=== PATIENT | female | born 1995 | race African-American/Black ===

== ENCOUNTER 2019-07-22 03:25 | Emergency (ER) | payer OTHER, MEDICAID, SELFPAY ==
[2019-07-22 03:38] VITALS: BP 130/85; PULSE 73; RESP 18; TEMP 36.8; O2SAT 100
--- NOTE | 2019-07-22 03:44 | ED.PREGNANCY ---
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 Patient is 15 weeks states she had spotting that started approximately 225 this morning. Patient went to the bathroom and wiped after arriving in the emergency department and states she thinks the bleeding may have stopped. Patient knows that she is O- and needs RhoGam if she has bleeding, hence why she presented to the emergency department. Patient states she was just relaxing and not doing anything strenuous when spotting occurred. She denies any abdominal pain or cramping. Patient last saw her CANCER RESEARCHER on July 04. Complaint: vaginal bleeding Onset (ago): hour(s) Pain Consistency: intermittent and now resolved Associated symptoms: denies other symptoms Vaginal discharge: none Vaginal bleeding: light (spotting) Patient : Yes Expected Date of Delivery: 01/08/20 Number of Weeks : 15 OB History - Current : no complications care: followed by OB and previous ultrasound confirms IUP Related Data Home Medications Medication Instructions Recorded Confirmed aspirin [Aspirin Low Dose] 81 mg PO DAILY 07/22/19 omega-3 fatty [id number] [[place] cap PO 07/22/19 Blue DHA] Allergies Allergy/AdvReac Type Severity Reaction Status Date / Time No Known Allergies Allergy Verified 05/22/19 17:41 Review of Systems Review of Systems: All systems reviewed & are unremarkable except as noted in HPI and below Gastrointestinal: Gastrointestinal: Denies abdominal pain Genitourinary: Genitourinary: Reports abnormal vaginal bleeding and Denies vaginal discharge PMFSH Past Medical History Medical History (Updated 07/22/19 @ 05:53 by Taylor Montenegro MD) No significant past medical history Surgical History Surgical History (Updated 07/22/19 @ 04:01 by Taylor Montenegro MD) No history of previous surgery Social History Social History (Updated 05/22/19 @ 19:05 by Renetta James PA-C) Smoking status: Never smoker Substance use: never Exam Const: General: cooperative, no acute distress and alert Nutritional Appearance: well nourished Orientation/consciousness: patient oriented x3 Limitations: no limitations HENMT: Mouth: Yes lip normal and Yes moist mucous membranes Resp: Effort & Inspection: normal respiratory effort Auscultation: clear to auscultation bilaterally Cardio: Rate: regular rate Rhythm: regular rhythm GI: GI Palp: Yes Soft to palpation and No Tenderness to palpation present (GI) Auscultation: normal bowel sounds : Speculum Exam - Vagina: abnormal vaginal discharge yellow (thick) and vaginal bleeding (small amount) Speculum Exam - Cervix: Cervical os closed Skin: General skin exam: normal color Neuro: General: patient oriented x3 Cognition (Neuro): normal cognition Speech: normal speech Extrem: General: normal to inspection, full ROM and no clubbing, cyanosis or edema Psych: Mental Status: mental status grossly normal Affect: normal affect Attitude: cooperative Course Course Emergency Course: Patient had notable vaginal discharge on examination. She denies having noticed any vaginal discharge at home. She denies any pelvic pain. She denies any itching. Discharge looks suspicious for yeast. Cultures obtained. Advised importance of CANCER RESEARCHER follow-up. Patient given dose of RhoGam. heart tones dopplered in 140s by nurse. Vital Signs Vital signs: Vital Signs Temperature 98.3 F 07/22/19 03:38 Pulse Rate 73 07/22/19 03:38 Respiratory Rate 18 07/22/19 03:38 Blood Pressure 130/85 07/22/19 03:38 Pulse Oximetry 100 07/22/19 03:38 Temperature 98.3 F
[2019-07-22 04:33] LABS: Add Urine Microscopic? YES; Appearance Urine Cloudy (Clear); Bacteria Urine Trace /hpf; Bilirubin Urine Negative (Negative); Blood Urine 1+ (Negative); Color Urine Yellow (Yellow); Glucose Urine UA Negative (Negative); Ketones Urine Negative (Negative); Leukocyte Esterase Ur 3+ LEU/UL (Negative); Mucus Urine Rare /lpf; Nitrate Urine Negative (Negative); Protein Urine 1+ mg/dL (Negative); RBC Urine 0-2 /hpf (0-2); Specific Grav Ur 1.025 (1.001-1.035); Squamous Epithelial Cell Urine Moderate /hpf (Few); Urobilinogen Urine Negative mg/dL (<2.0); WBC Urine 0-3 /hpf
[2019-07-22] MEDS: RHO(D) IMMUNE GLOBULIN 300 MCG SYRINGE IM (05:55)
[2019-07-22 06:01] VITALS: BP 102/59; PULSE 65; RESP 18; TEMP 36.4; O2SAT 100
== END 2019-07-22 06:17 | disposition home or self-care (01) ==
PROVIDERS: Emergency Provider Emergency Medicine; PCP Obstetrics & Gynecology
DX: O20.9 Hemorrhage in early pregnancy, unspecified (principal); Z3A.15 15 weeks gestation of pregnancy
CPT/HCPCS: 36415; 81001; 86850; 86900; 86901; 87070; 87491; 87591; 87808; 90384; 96372; 99284; J2790

== ENCOUNTER 2019-10-20 13:46 | Outpatient (RCR) | payer OTHER, MEDICAID, SELFPAY ==
[2019-10-20 15:43] LABS: Glucose 1 Hour PP 50gm Dose 81 mg/dL
[2019-10-20 15:48] LABS: Hematocrit 30.9 % (37.0-47.0)
[2019-10-20 16:25] LABS: HIV 1/2 Ab P24 Ag Result Negative (Negative)
[2019-10-23 07:41] LABS: Rapid Plasma Reagin Non-Reactive (NonReactive)
[2019-10-23] MEDS: RHO(D) IMMUNE GLOBULIN 300 MCG SYRINGE IM (14:39)
== END 2020-01-18 23:59 | disposition home or self-care (01) ==
LOC: ANHLAB 13:46
PROVIDERS: PCP Obstetrics & Gynecology; Visit Provider Obstetrics & Gynecology
DX: Z29.13 Encounter for prophylactic Rho(D) immune globulin (principal); Z11.4 Encounter for screening for human immunodeficiency virus [HIV]; O36.0990 Maternal care for other rhesus isoimmunization, unspecified trimester, not applicable or unspecified; Z3A.00 Weeks of gestation of pregnancy not specified
CPT/HCPCS: 36415; 82947; 85014; 85018; 85461; 86592; 86703; 90384; 96372; G0432; J2790

== ENCOUNTER 2019-12-11 21:00 | Inpatient (IN) | payer OTHER, MEDICAID, SELFPAY ==
[2019-12-11] VITALS (32 sets, daily range): BP systolic 120–143; BP diastolic 67–109; PULSE 76–110; TEMP 36.8; O2SAT 98–100; BMI 28.0
--- NOTE | 2019-12-11 21:58 | LDADM ---
This patient, Janneth Bravo, was admitted to Labor/Delivery/Recovery 107 on 12/11/19 at 21:00. Plans for labor, pain management and were discussed with patient. Patient/family oriented to hospital policies and general routines including ID bracelet, bed and alarms, visiting hours, pain management, procedures, bathroom and other care routines, personal items, smoking policy, room service/diet and guest tray routines, infant security routines, and visiting hours. Patient/Family are encouraged to report perceived risks to care and to ask questions if they do not understand what they are told or what they should do. See OBIX for further documentation.
[2019-12-11 22:02] LABS: Basophils Percent Auto 0.2 % (0.2-1.2); Eosinophils Absolute Auto 0.1 K/mm3 (0-0.3); Eosinophils Percent Auto 0.8 % (0-4.4); Hematocrit 32.5 % (37.0-47.0); Hemoglobin 10.6 g/dL (12.0-15.0); Immature Granulocyte Absolute 0.05 K/mm3 (0.00-0.031); Immature Granulocyte Percent A 0.8 % (0-0.5); Lymphocytes Absolute Auto 1.41 K/mm3 (0.9-3.2); Lymphocytes Percent Auto 21.4 % (18.3-44.2); Mean Corpuscular HGB Conc 32.6 g/dl (32-36); Mean Corpuscular Hemoglobin 30.3 pg (26-34); Mean Corpuscular Volume 92.9 fl (80-100); Mean Platelet Volume 9.6 fl (7.4-10.4); Monocytes Absolute Auto 0.7 K/mm3 (0.1-0.6); Monocytes Percent Auto 10.6 % (2.6-8.5); Neutrophils Absolute Auto 4.4 K/mm3 (1.3-6.7); Neutrophils Percent Auto 66.2 % (45.5-73.1); Platelet Count Result 214 k/mm3 (150-375); Red Cell Distribution Width 13.4 % (11.5-14.5); White Blood Count 6.6 K/mm3 (4.5-10.0)
[2019-12-11] MEDS: LACTATED RINGERS 1,000 ML 125 ML IV CONT (22:44)
[2019-12-11] MEDS: AMPICILLIN 2 GM/NS 100 ML 2 GM/100 ML BAG IVPB (22:44)
--- NOTE | 2019-12-11 23:22 | WPDANESEPP ---
Anes - Eval Pre Procedure Procedure: Labor epidural Date/Time: 12/11/19 23:22 Surgeon: juve Preop Diagnosis: pain during labor Pre Op Diagnosis: Contractions Patient Data Age: 24 Gender: F Height: 1.52 m Weight: 65 kg Last Vital Signs Pulse 90 12/11/19 23:01 BP 128/72 12/11/19 23:01 Pulse Ox 100 12/11/19 23:21 Allergies Allergy/AdvReac Type Severity Reaction Status Date / Time No Known Allergies Allergy Verified 12/09/19 14:49 Home Medications Medication Instructions Recorded Confirmed Type aspirin [Aspirin Low Dose] 81 mg PO DAILY 07/22/19 12/11/19 History omega-3 fatty [id number] [[place] 1 cap PO DAILY 07/22/19 12/11/19 History Blue DHA] Laboratory Tests 12/11/19 12/11/19 12/11/19 21:55 21:55 21:55 WBC 6.6 K/mm3 K/mm3 (4.5-10.0) RBC 3.50 M/mm3 L M/mm3 (4.2-5.4) Hgb 10.6 g/dL L g/dL (12.0-15.0) Hct 32.5 % L % (37.0-47.0) MCV 92.9 fl fl (80-100) MCH 30.3 pg pg (26-34) MCHC 32.6 g/dl g/dl (32-36) RDW 13.4 % % (11.5-14.5) Plt Count 214 k/mm3 k/mm3 (150-375) MPV 9.6 fl fl (7.4-10.4) Immature Gran % (Auto) 0.8 % H % (0-0.5) Neut % (Auto) 66.2 % % (45.5-73.1) Lymph % (Auto) 21.4 % % (18.3-44.2) [place] % (Auto) 10.6 % H % (2.6-8.5) Eos % (Auto) 0.8 % % (0-4.4) Baso % (Auto) 0.2 % % (0.2-1.2) Lymph # (Auto) 1.41 K/mm3 K/mm3 (0.9-3.2) [place] # (Auto) 0.7 K/mm3 H K/mm3 (0.1-0.6) Eos # (Auto) 0.1 K/mm3 K/mm3 (0-0.3) Baso # (Auto) 0.0 K/mm3 K/mm3 (0.0-0.1) Abs Immat Gran (auto) 0.05 K/mm3 H K/mm3 (0.00-0.031) Absolute Neuts (auto) 4.4 K/mm3 K/mm3 (1.3-6.7) Absolute Nucleated RBC 0.0 K/mm3 K/mm3 (0.0-0.012) Nucleated RBC % 0.0 % % (0.0-0.2) RPR Pending Blood Type Pending Antibody Screen Pending Patient hx anesthesia problems: none Family hx anesthesia problems: none [facility] Past Medical History Medical History (Updated 07/24/19 @ 00:00 by Hay Garay) No significant past medical history Surgical History Surgical History (Updated 07/22/19 @ 04:01 by Taylor Montenegro MD) No history of previous surgery Family History Family History (Updated 12/09/19 @ 14:50 by Stacey Duque RN) Mother Hypertension Social History Social History (Updated 05/22/19 @ 19:05 by Renetta James PA-C) Smoking status: Never smoker Substance use: never Spiritual care concerns: No Exam Day of Procedure 12/11/19 23:22
[2019-12-12] VITALS (21 sets, daily range): BP systolic 122–145; BP diastolic 69–97; PULSE 64–139; RESP 16–18; TEMP 36.7–37.5; O2SAT 83–100
[2019-12-12] MEDS: OXYTOCIN 30 UNITS/NS 500 ML 30 UNITS/500 ML BAG 999 UNITS IV CONT (01:01)
--- NOTE | 2019-12-12 01:10 | PM.OBPRVD ---
OB - Delivery Note Procedure Delivery date: 12/12/19 events: Labor < 37 Weeks and Premature Rupture of Membrane Delivery monitor: external FHT and external uterine Route of delivery: vacuum extraction Indication for instrumentation: nonreassuring FHR tracing (FHR down to 40's x 1 minute, back up to 90's x2 minutes, then 40's again x1 minute.Dr Nicole notified and is enroute. Vac applied @ 0054 and gentle traction applied with 2 pushes. Delivery of head easily. Vac removed and spontaneous delivery of the body. ) Laceration description: None Estimated blood loss (mL): 65 Anesthesia type: Epidural Complications: FHR down to 40's x 1 minute with return to 90's x 2 minutes, fhr then down to 40's again. Poor maternal pushing ability. Called Dr Nicole to informed with first decel in the 40's that we may need to apply vac and he is enroute. Peds also notified and coming over. Vac applied at 0054 due to 2nd deceleration. Delivery of head with 2 maternal pushes and gentle traction. Vac removed. Spontaneous delivery of infant. [place] Baby Date of : 12/12/19 Time of : 00:55 Weeks of gestation at delivery: 36 Weight (pounds): 5 Weight (ounces): 14 presentation: vertex position: Left Occiput Anterior Placenta delivery description: Spontaneous and Abnormal Configuration (Marginal insertion and short cord.) score one minute: 8 score five minutes: 9
--- NOTE | 2019-12-12 01:24 | WPDOBADMIT ---
Obstetrics - Admit Note Admission Note: 24 y/o @ 36 weeks here with spontaneous rupture of membranes. Treat for unknown GBS status. record reviewed. No pertinent additions to the history and/or any subsequent changes in the physical findings that are not consistent with the expected course of the were found. Additions to the history and/or subsequent changes in the physical findings follow. None.
--- NOTE | 2019-12-12 03:20 | OBPPTRN ---
Patient transferred to post room #284 via wheelchair with baby in bassinet. Support person present. Oriented to unit, room, information board, rooming in, admission packet and security measures. Patient verbalizes understanding.
--- NOTE | 2019-12-12 10:20 | PC.NURSE ---
Consult with pt., reported she wanted to breastfeed, mother states has been bottle feeding and she will continue with formula. Offered to assist mother with pumping mother declined offer.
[2019-12-12] MEDS: IBUPROFEN 600 MG TABLET PO (10:55)
[2019-12-12] MEDS: MULTIVIT/MIN/PREN/FOL AC/IRON TABLET 1 TAB PO (10:55)
[2019-12-12 11:04] LABS: Rapid Plasma Reagin Non-Reactive (NonReactive)
[2019-12-12] MEDS: ACETAMINOPHEN 325 MG TABLET 650 MG PO (20:00)
[2019-12-13] MEDS: ACETAMINOPHEN 325 MG TABLET 650 MG PO (04:46)
[2019-12-13] MEDS: IBUPROFEN 600 MG TABLET PO (04:46)
[2019-12-13 05:31] LABS: Hematocrit 30.9 % (37.0-47.0); Hemoglobin 10.1 g/dL (12.0-15.0)
--- NOTE | 2019-12-13 08:04 | WPDANLDPN2 ---
Anes-Prog Note L&D Date/Time: 12/13/19 08:04 Comfortable throughout: labor Neuraxial method: epidural Epidural/Spinal procedure site: clean & non-tender Neuro status: Neuro function grossly intact. Cardiovascular status: normal Respiratory status: normal Airway patency: baseline Mental status: baseline Post-Op hydration status: normal Vital Signs: Last Vital Signs Temp 98.0 F 12/12/19 19:52 Pulse 71 12/12/19 19:52 Resp 16 12/12/19 19:52 BP 126/92 H 12/12/19 19:52 Pulse Ox 100 12/12/19 08:10 Post-procedural complaints: none Patient feedback: Patient satisfied with anesthetic care.
[2019-12-13 08:15] VITALS: BP 128/93; PULSE 73; RESP 18; TEMP 37.1; O2SAT 98
[2019-12-13] MEDS: RHO(D) IMMUNE GLOBULIN 300 MCG SYRINGE IM (09:33)
--- NOTE | 2019-12-13 10:56 | PM.OBPNVD ---
OB - PN: Subj Subjective Date/time seen: 12/13/19 10:56 Patient comments: no complaints, pain well controlled, incisional pain, tolerating diet and flatus present OB - PN: Obj Data Labs CBC & Chem 7: 12/13/19 04:51 Labs: Laboratory Results - last 24 hr 12/11/19 12/13/19 12/13/19 21:55 04:51 04:51 Hgb 10.1 L Hct 30.9 L RPR Non-reactive Blood Type O Negative Antibody Screen TNP Screen Negative Baby's Blood Type O pos Baby's KATRINA Negative Doses of RhIg Required 1 OB - PN A/P Plan day: 1 Plan: routine care Comments: No problems, routine care Time Spent With Patient Time: Total time spent is greater than 50% in coordination of care (as documented) at patient's floor/unit and/or counseling patient: Exam Const: General: comfortable, no acute distress and alert Resp: Effort & Inspection: normal respiratory effort Auscultation: no crackles, no rales and no rhonchi Cardio: Rate: regular rate Heart sounds: no click, no murmurs and no rubs GI: Inspection: non-distended GI Palp: No Tenderness to palpation present (GI) Auscultation: normal bowel sounds Other: Incision - CDI Extrem: General: normal to inspection, no pedal edema and no calf tenderness
--- NOTE | 2019-12-13 14:20 | PC.NURSE ---
Patient instructed on viewing the discharge video Mother & Baby Care, The First Two Weeks online. Patient was given the opportunity and encouraged to ask questions. Patient verbalized understanding of information shared and has been given the mother/baby guide for home reference.
--- NOTE | 2020-01-05 11:11 | PM.OBDSVD ---
DS: Admitting Diagnosis Admitting Diagnosis Admitting Diagnosis: Contractions DS: Discharge Diagnosis Discharge Diagnosis (1) Vaginal delivery: Code(s): O80 - Encounter for full-term uncomplicated delivery Status: Acute OB - DS: Summary OB Procedures : None OB Procedures Intrapartum: Vacuum extraction OB Procedures: : None Time Spent with Patient Time attestation: Total time spent providing and/or coordinating discharge services: DS: Data Data Completed and Pending Completed studies during hospitalization: Pending at discharge 12/12/19 01:00 Surgical [PTH] Routine Discharge Plan Discharge Consulting providers: Cesar Sanchez ; Deidre Vazquez Discharging Clinician: Phoenix Nicole Patient Disposition: Home, Self-Care Activity: pelvic rest Diet: regular Discharge Instructions: Education: Mom and Baby Guide Given and Preeclampsia Handout to: Mother Mother received instruction on watching Mom/Baby Care video. Follow-Up: Call your delivering provider's office for an appointment to be seen in: 4 Weeks Mom and baby should come to the [facility] for the follow-up appointment. Appointment Date/Time: December 15, 2019 at 10:00 am What to expect at your follow-up visit: Physical Assessment Call [phone] if you are unable to keep your appointment time. BREAST CARE: * Wear a snug supportive bra. * For engorgement discomfort: Breast Feeding: * Apply warm moist washcloths * Express milk as needed to relieve engorgement * Wear loose clothing Bottle Feeding: * May apply ice packs * For sore nipples: * Identify correct latch-on * Apply warm moist washcloths before and after nursing * Air dry nipples after nursing * May apply Lansinoh cream to nipples EPISIOTOMY/PERINEAL CARE: * Until bleeding stops, use your ila bottle after urinating * Change your pad frequently throughout the day * You may take sitz baths several times a day (fill your bathtub with warm water and soak for 20 minutes.) Do NOT bathe in the water * No tub baths until seen by your physician - You may shower ACTIVITY: * Rest as much as possible. * Do not exercise or lift anything heavier than your baby (such as laundry or other children.) * Avoid stairs or driving as much as possible. * Do not put anything into the vagina. No douching, tampons, or sexual activity until seen by physician. NOTIFY PHYSICIAN IF YOU HAVE ANY QUESTIONS OR IF ANY OF THE FOLLOWING SYMPTOMS OCCUR: * If your perineum becomes red, swollen, or more painful than what you have experienced in the hospital. * If your vaginal bleeding becomes foul smelling. * If your vaginal bleeding becomes more heavy than a period or if your bleeding changes from pink to bright red. However, you may pass an occasional walnut-sized clot once or twice for the first week . * If you experience a sharp, shooting pain in you calves. * If you discover a hard, reddened area on your breast or if you experience flu-like symptoms. DIET: * Eat regular, well-balanced meals. * Drink plenty of fluids daily. If , drink to thirst. Stand Alone Forms: General Discharge Information Follow-up/Referrals: Casandra Casey MD [Physician] - 4 Weeks Discharge Medications: Continued [place] Blue DHA 312-250-18 mg Capsule 1 cap PO DAILY RF: 0 Discontinued aspirin [Aspirin Low Dose] 81 mg Tablet,Delayed Release (Dr/Ec) 81 mg PO DAILY RF: 0 Date of admission: 12/11/19 21:00 Primary Care Provider: PHYSICIAN,REFRIGERATING TECHNICIAN Admitting Provider: Casandra Casey Discharge Date/Time: 12/13/19 15:03 Attending physician on admission: Phoenix Nicole
== END 2019-12-13 15:03 | disposition home or self-care (01) | DRG 805 ==
LOC: ANHLDR 22:21 → ANHOB2 12-13 14:14 → ANHLDR 12-14 11:11 → ANHOB2 12-14 11:11
PROVIDERS: Advanced Practice Midwife; Admitting Provider Obstetrics & Gynecology; Visit Provider Obstetrics & Gynecology
DX: O42.913 Preterm premature rupture of membranes, unspecified as to length of time between rupture and onset of labor, third trimester (principal); O60.14X0 Preterm labor third trimester with preterm delivery third trimester, not applicable or unspecified; Z37.0 Single live birth; Z3A.36 36 weeks gestation of pregnancy; O36.8330 Maternal care for abnormalities of the fetal heart rate or rhythm, third trimester, not applicable or unspecified; O69.3XX0 Labor and delivery complicated by short cord, not applicable or unspecified; O69.89X0 Labor and delivery complicated by other cord complications, not applicable or unspecified
CPT/HCPCS: 36415; 85014; 85018; 85025; 85461; 86592; 86850; 86880; 86900; 86901; 86902; 88307; 90384; A9270; J0290; J2590; J2790; J7120

== ENCOUNTER 2019-12-13 14:45 | Outpatient (RCR) | payer OTHER, MEDICAID, SELFPAY ==
--- NOTE | 2019-11-14 14:56 | PTOPEVAL ---
PHYSICAL THERAPY EVALUATION AND PLAN OF CARE Thank you for referring Janneth Bravo to [facility]. I recommend Janneth participate in physical therapy 1x/week for 4-6 weeks. We will work toward a home exercise program, decrease trigger points, and discuss whether or not an SIJ belt may be helpful. Please review, sign, date and return this plan of care MELLY. I agree with and certify that the following plan of care is medically necessary. Referring Physician Date Attending Provider: Casandra Casey MD Evaluation Diagnosis right leg pain Onset 09/2019 Subjective Information pain in right leg since end of Query Text:As Reported By Patient/ September. She will sometimes call Family off work or have to sit at work. she works for [employer] in [place]. She 32 weeks . She reports that the pain starts in the hip and goes down the leg. the pain is intermittent. she will sometimes have to wait for the pain to go away or she can lay down and she feels better. Pain Assessment Timing of Pain Assessment Timing of Pain Assessment Assessment Pain Scale Pain Scale Used Numeric (1 - 10) Self Report Pain Assessment Right Leg(s) Reported Pain Level 2 Pain Description Sharp,Shooting Pain Frequency Acute,Intermittent Lowest Pain Intensity 0 Greatest Pain Intensity 8 Pain Relief Interventions Used By Lying Supine Patient Pain Score Pain Score 2: Self Report Cervical and Lumbar ROM Lumbar ROM Lumbar Flexion (0-90) 35 Query Text:Active in Degrees Lumbar Extension (0-40) 25 Query Text:Active in Degrees Lumbar Comments patient is 32 weeks : baby limited lumbar ROM flexion: left lateral lean Lower Extremity Range of Motion Hip Range of Motion Right Hip Flexion Range of Motion - Active 130 Hip Extension Range of Motion - Active 15 Hip Abduction Range of Motion - Passive 40 Hip Medial Rotation - Passive 5 Hip Lateral Rotation - Passive 25 Lower Extremity Muscle Strength Testing Hip Strength Right Hip Flexion Strength 4+ Good + Hip Abduction Strength 4 Good Knee Strength Right Knee Flexion Strength 5 Normal Knee Extension Strength 5 Normal Muscle Length Testing Muscle Length Testing Piriformis w/Hip Flexion >90 Degrees (L) Moderate Tightness,(R) Severe Tightness Posture Posture Standing Position
--- NOTE | 2019-12-06 15:21 | PCPTNOTE ---
Patient did not show up for scheduled appointment this date.
--- NOTE | 2019-12-13 15:28 | PCPTNOTE ---
Patient did not show up for scheduled appointment this date.
--- NOTE | 2019-12-13 15:28 | PCPTNOTE ---
PHYSICAL THERAPY DISCHARGE NOTE Attending Provider: Casandra Casey MD Patient:Janneth Bravo Date of :1995 Cata participated in physical therapy evaluation and 2 treatment visits with moderate relief of symptoms to right hip and low back. She did not show fo rher appointments on 12/06/2019 and 12/13/2019. In looking at her medical record, she delivered her child on 12/12/2019; therefore she will be discharged PT at this time. Thank you for referring this patient to [facility]. Please review, sign, date and return this discharge summary MELLY. I have been updated about the patient's current status and I agree with discharge from the above service at this time. Referring Physician Date
== END 2019-12-14 12:50 | disposition home or self-care (01) ==
LOC: ANHPT 14:45
PROVIDERS: PCP Obstetrics & Gynecology; Visit Provider Obstetrics & Gynecology
DX: M79.604 Pain in right leg (principal)
CPT/HCPCS: 97110; 97140; 97161

== ENCOUNTER 2020-01-13 12:22 | Outpatient (CLI) | payer OTHER, MEDICAID, SELFPAY ==
[2020-01-13] VITALS (11 sets, daily range): BP systolic 118–158; BP diastolic 81–114; PULSE 63–80
[2020-01-13] MEDS: LABETALOL HCL 100 MG TABLET 200 MG PO (13:35)
[2020-01-13 13:48] LABS: Basophils Percent Auto 0.5 % (0.2-1.2); Eosinophils Absolute Auto 0.1 K/mm3 (0-0.3); Hematocrit 41.1 % (37.0-47.0); Hemoglobin 13.4 g/dL (12.0-15.0); Immature Granulocyte Absolute 0.02 K/mm3 (0.00-0.031); Immature Granulocyte Percent A 0.5 % (0-0.5); Lymphocytes Absolute Auto 2.03 K/mm3 (0.9-3.2); Lymphocytes Percent Auto 47.3 % (18.3-44.2); Mean Corpuscular HGB Conc 32.6 g/dl (32-36); Mean Corpuscular Hemoglobin 29.5 pg (26-34); Mean Corpuscular Volume 90.3 fl (80-100); Mean Platelet Volume 10.8 fl (7.4-10.4); Monocytes Absolute Auto 0.4 K/mm3 (0.1-0.6); Monocytes Percent Auto 8.9 % (2.6-8.5); Neutrophils Absolute Auto 1.7 K/mm3 (1.3-6.7); Neutrophils Percent Auto 39.8 % (45.5-73.1); Platelet Count Result 200 k/mm3 (150-375); Red Blood Count 4.55 M/mm3 (4.2-5.4); Red Cell Distribution Width 12.8 % (11.5-14.5); White Blood Count 4.3 K/mm3 (4.5-10.0)
[2020-01-13 13:50] LABS: Add Urine Microscopic? NO; Appearance Urine Clear (Clear); Bilirubin Urine Negative (Negative); Blood Urine Negative (Negative); Color Urine Colorless (Yellow); Glucose Urine UA Negative (Negative); Ketones Urine Negative (Negative); Leukocyte Esterase Ur Negative LEU/UL (NEGATIVE); Nitrate Urine Negative (Negative); Protein Urine Negative (Negative); Specific Grav Ur 1.011 (1.001-1.035); Urobilinogen Urine Negative mg/dL (<2.0)
[2020-01-13 14:00] LABS: Potassium 4.5 mmol/L (3.4-5.0)
[2020-01-13 14:05] LABS: Alanine Aminotransferase 9 U/L (4-35); Albumin Level 4.5 g/dL (3.5-5.1); Alkaline Phosphatase 126 U/L (38-126); Anion Gap 7 mmol/L (8-16); Aspartate Amino Transferase 19 U/L (14-36); Bilirubin,Total 0.4 mg/dL (0.2-1.3); Blood Urea Nitrogen 17 mg/dL (7-17); Calcium 9.1 mg/dL (8.4-10.2); Carbon Dioxide 25 mmol/L (22-30); Chloride 103 mmol/L (98-107); Estimated Glomerular Filt Rate > 60; Glucose 79 mg/dL (65-105); Sodium 135 mmol/L (137-145); Uric Acid 6.1 mg/dL (2.5-7.5)
[2020-01-13 14:42] LABS: Total Protein Urine Random 9 mg/dL
[2020-01-13 14:50] LABS: Creatinine Urine 43.3 mg/dL
== END 2020-01-13 15:12 | disposition home or self-care (01) ==
LOC: ANHOBOP 12:31 → ANHOBPP 12:32
PROVIDERS: Visit Provider Obstetrics & Gynecology
DX: O16.5 Unspecified maternal hypertension, complicating the puerperium (principal)
CPT/HCPCS: 36415; 80053; 81003; 82570; 84156; 84550; 85025; 87086; 99199; A9270

== ENCOUNTER 2022-05-13 22:46 | Emergency (ER) | payer BC, MEDICAID, SELFPAY ==
[2022-05-13 22:52] VITALS: BP 143/95; PULSE 88; RESP 20; TEMP 36.9; O2SAT 100
[2022-05-14 00:15] LABS: Influenza A QL RT-PCR Positive (Negative); Influenza B QL RT-PCR Negative (Negative); RSV RNA, RT-PCR Negative (Negative); SARS-CoV-2 RNA PCR Negative
--- NOTE | 2022-05-14 00:28 | ED.GENADULT ---
HPI - General Adult General Chief complaint: Upper Respiratory Infection Stated complaint: R ear pain, cough Time Seen by Provider: 05/14/22 00:04 History of Present Illness HPI narrative: Ms. Bravo is a 27-year-old female who presented emergency room with complaints of right ear pain and sore throat. Patient states that she has had increasing right ear pain over the last few days. Patient denies any fevers chills. Patient states that she has had sick contact with her children. Patient denies any shortness of breath or dyspnea on exertion. Patient states she does have an occasional cough that is productive of clear sputum. Patient denies taking any [id number] medication to help with her symptoms. Patient denies any chest pain, lightheadedness, dizziness, syncopal, or near syncopal episodes. Related Data Allergies Allergy/AdvReac Type Severity Reaction Status Date / Time No Known Allergies Allergy Verified 05/14/22 00:20 Review of Systems Review of Systems: A 12 point review of systems was completed patient all pertinent positive and negative per HPI the remainder are unremarkable. [facility], [facility] Past Medical History Medical History (Updated 05/14/22 @ 00:53 by Brenda Gibson APRN) No significant past medical history Surgical History Surgical History (System 08/27/20 @ 15:57 by Saúl Rodriguez) No history of previous surgery Family History Family History (System 08/27/20 @ 15:57 by Saúl Rodriguez) Mother Hypertension Social History Social History (System 08/27/20 @ 15:57 by Saúl Rodriguez) Smoking status: Never smoker Substance use: never Spiritual care concerns: No Exam Narrative: Constitutional: Patient is well-nourished in no acute distress. Patient is alert and oriented x3 HEENT: Moist mucous membranes. No scleral icterus. No lymphadenopathy. There is no erythema noted oropharynx. tonsils are not noted. Right TM is retracted with no notable landmarks at this time. TM to right ear does show erythema. Left TM is a pearly haley with all infarcts noted and a good light reflex. Neck: No carotid bruits noted no JVD noted Lungs: Lung sounds are clear to auscultation bilaterally. No accessory muscle use. No rhonchi, rales, or wheezes noted. Cardiovascular: Apical pulse is regular rate and rhythm. S1-S2 noted, no S3 or S4 noted. No gallops, murmurs, or rubs noted. Abdomen: Soft, round, and nontender. No palpable masses. Extremities: No edema. Nontender. Skin: No rashes or lesions. Warm and dry. Skin is intact. Neurological: No focal neurological deficits. Cranial nerves II-XII grossly intact. Psychiatric: Cooperative, appropriate mood, and affect Course Vital Signs Vital signs: Vital Signs Temperature 36.9 C 05/13/22 22:52 Pulse Rate 88 05/13/22 22:52 Respiratory Rate 05/13/22 22:52 Blood Pressure 143/95 H 05/13/22 22:52 Pulse Oximetry 100 05/13/22 22:52 Oxygen Delivery Room Air 05/13/22 22:52 Temperature 36.9 C 05/13/22 22:52 Pulse Rate 88 05/13/22 22:52 Respiratory Rate 20 05/13/22 22:52 Blood Pressure 143/95 H 05/13/22 22:52 Pulse Oximetry 100 05/14/22 00:37 Oxygen Delivery Room Air 05/14/22 00:37 Medical Decision Making Differential Diagnosis Differential Diagnosis: Otitis media, otitis externa, Streptococcus pharyngitis, URI, sinusitis Vital Signs Vital Signs: Vital Signs Temperature 36.9 C 05/13/22 22:52 Pulse Rate 88 05/13/22 22:52 Respiratory Rate 20 05/13/22 22:52 Blood Pressure 143/95 H 05/13/22 22:52 Pulse Oximetry 100 05/13/22 22:52 Oxygen Delivery Room Air 05/13/22 22:52 Temperature 36.9 C 05/13/22 22:52 Pulse Rate 88 05/13/22 22:52 Respiratory Rate 05/13/22 22:52 Blood Pressure 143/95 H 05/13/22 22:52 Pulse Oximetry 100 05/14/22 00:37 Oxygen Delivery Room Air 05/14/22 00:37 Lab Data Labs: Lab Results 05/13/22 Range/Units 23:36 Influenza A (
[2022-05-14 00:37] VITALS: O2SAT 100
== END 2022-05-14 01:00 | disposition home or self-care (01) ==
PROVIDERS: Emergency Medicine; Emergency Provider Nurse Practitioner Adult Health
DX: J10.1 Influenza due to other identified influenza virus with other respiratory manifestations (principal); H66.91 Otitis media, unspecified, right ear; Z20.822 Contact with and (suspected) exposure to COVID-19
CPT/HCPCS: 87081; 87637; 99283

== ENCOUNTER 2022-07-11 19:34 | Emergency (ER) | payer BC, MEDICAID, SELFPAY ==
[2022-07-11 19:54] VITALS: BP 147/97; PULSE 65; RESP 16; TEMP 36.3; O2SAT 100
--- NOTE | 2022-07-11 20:28 | PC.NURSE ---
Patient approached the intake desk and informed parts data writer that she was going to leave and not be seen at this time. Patient alert and ambulatory out of ED doors.
== END 2022-07-11 20:28 | disposition left against medical advice (07) ==
LOC: ANHED 20:36
DX: Z53.21 Procedure and treatment not carried out due to patient leaving prior to being seen by health care provider (principal)
CPT/HCPCS: 99199

== ENCOUNTER 2022-07-12 18:14 | Emergency (ER) | payer BC, MEDICAID, SELFPAY ==
[2022-07-12 18:54] VITALS: BP 139/99; PULSE 76; RESP 14; TEMP 36.7; O2SAT 100
[2022-07-12 19:16] LABS: Appearance Urine Clear (Clear); Bilirubin Urine Negative (Negative); Blood Urine 2+ (Negative); Color Urine Yellow (Yellow); Glucose Urine UA Negative (Negative); Ketones Urine Negative (Negative); Leukocyte Esterase Ur Negative LEU/UL (Negative); Nitrate Urine Negative (Negative); Protein Urine Negative (Negative); Specific Grav Ur >= 1.030 (1.001-1.035); Urobilinogen Urine 0.2 mg/dL (<2.0); pH Urine 5.5 (5.0-9.0)
[2022-07-12 19:19] LABS: RBC Urine 0-2 /hpf (0-2); Squamous Epithelial Cell Urine Occasional /hpf (Few); WBC Urine 0-3 /hpf
[2022-07-12 19:23] LABS: Add Urine Microscopic? YES
[2022-07-12 23:40] VITALS: BP 150/96; PULSE 71; RESP 14; O2SAT 100
[2022-07-12 23:54] LABS: Basophils Percent Auto 0.5 % (0.2-1.2); Eosinophils Absolute Auto 0.1 K/mm3 (0-0.3); Eosinophils Percent Auto 1.8 % (0-4.4); Hematocrit 39.8 % (37.0-47.0); Hemoglobin 12.7 g/dL (12.0-15.0); Immature Granulocyte Absolute 0.01 K/mm3 (0.00-0.031); Immature Granulocyte Percent A 0.2 % (0-0.5); Lymphocytes Percent Auto 42.3 % (18.3-44.2); Mean Corpuscular HGB Conc 31.9 g/dl (32-36); Mean Corpuscular Hemoglobin 29.9 pg (26-34); Mean Corpuscular Volume 93.6 fl (80-100); Mean Platelet Volume 9.9 fl (7.4-10.4); Monocytes Absolute Auto 0.6 K/mm3 (0.1-0.6); Monocytes Percent Auto 10.3 % (2.6-8.5); Neutrophils Absolute Auto 2.8 K/mm3 (1.3-6.7); Neutrophils Percent Auto 44.9 % (45.5-73.1); Platelet Count Result 266 k/mm3 (150-375); Red Blood Count 4.25 M/mm3 (4.2-5.4); Red Cell Distribution Width 13.2 % (11.5-14.5); White Blood Count 6.1 K/mm3 (4.5-10.0)
[2022-07-13 00:08] LABS: Alanine Aminotransferase 14 U/L (6-35); Albumin Level 4.3 g/dL (3.5-5.1); Alkaline Phosphatase 85 U/L (38-126); Anion Gap 5 mmol/L (8-16); Aspartate Amino Transferase 18 U/L (14-36); Bilirubin,Total 0.5 mg/dL (0.2-1.3); Blood Urea Nitrogen 12 mg/dL (7-17); Calcium 8.9 mg/dL (8.4-10.2); Carbon Dioxide 27 mmol/L (22-30); Chloride 103 mmol/L (98-107); Estimated CRCL calculation 97 ml/min; Estimated Glomerular Filt Rate > 60; Glucose 93 mg/dL (65-110); Potassium 3.5 mmol/L (3.4-5.0); Sodium 135 mmol/L (137-145)
--- NOTE | 2022-07-13 00:08 | ED.FEMALEGU ---
HPI - Female Genitourinary General Chief complaint: Vaginal Bleeding Stated complaint: vag bleeding Time Seen by Provider: 07/12/22 23:01 Source: patient Mode of arrival: ambulatory Limitations: no limitations History of Present Illness HPI Narrative: Patient is a 27 y/o female who presents to the ED with c/o vaginal spotting. Patient reports she had her normal menstrual cycle on 07/02 - 07/05. She states this cycle seemed normal for her in amount, timing, and length. She developed vaginal spotting a few days later. She states the bleeding was very light, did not require a pad or tampon. Has since persisted, which prompted her presentation. She denies any abdominal pain, nausea, vomiting, dizziness, lightheadedness, urinary symptoms, fevers. Related Data Allergies Allergy/AdvReac Type Severity Reaction Status Date / Time No Known Allergies Allergy Verified 07/11/22 19:36 Review of Systems Review of Systems: CONSTITUTIONAL: Denies fever, chills, or sweats. CARDIOVASCULAR: Denies chest pain. RESPIRATORY: Denies dyspnea. GASTROINTESTINAL: Denies abdominal pain, nausea, vomiting. GENITOURINARY: See HPI. SKIN: Denies rash or itching. MUSCULOSKELETAL: Denies back pain, joint pain, or myalgia. NEUROLOGIC: See HPI. All systems reviewed & are unremarkable except as noted in HPI and below PMFSH Past Medical History Medical History No significant past medical history Surgical History Surgical History No history of previous surgery Family History Family History Mother Hypertension Social History Social History Smoking status: Never smoker Substance use: never Spiritual care concerns: No Exam Narrative: GENERAL: Well appearing, well-nourished, non-toxic, in no acute distress. HEAD: Normocephalic, atraumatic. NECK: Supple. No adenopathy, no masses. RESPIRATORY: Airway patent, respirations nonlabored. Clear to auscultation bilaterally, no rales, rhonchi, wheezing. CARDIOVASCULAR: Regular rate and rhythm without murmurs, rubs, or gallops. Peripheral pulses 2+ and equal bilaterally. ABDOMINAL: Soft, no tenderness throughout abdomen, nondistended, no hepatosplenomegaly. Normoactive BS. PELVIC: Normal external genitalia. Normal-appearing cervix, closed os. Minimal amount of light pink/red vaginal bleeding in vault, no signs of hemorrhage or pooling of blood. MUSCULOSKELETAL: Moves all extremities. Strength/ROM intact without gross deformities. SKIN: Warm, dry, normal color. No rashes. NEURO: A&O X3. Speech clear. Cranial nerves II-XII grossly intact. Steady gait. No ataxic movements. PSYCHIATRIC: Appropriate mood and affect. Normal interaction. Course Vital Signs Vital signs: Vital Signs Temperature 98.0 F 07/12/22 18:54 Pulse Rate 76 07/12/22 18:54 Respiratory Rate 14 07/12/22 18:54 Blood Pressure 139/99 H 07/12/22 18:54 Pulse Oximetry 100 07/12/22 18:54 Oxygen Delivery Room Air 07/12/22 18:54 Temperature 98.0 F 07/12/22 18:54 Pulse Rate 71 07/12/22 23:40 Respiratory Rate 14 07/12/22 23:40 Blood Pressure 150/96 H 07/12/22 23:40 Pulse Oximetry 100 07/12/22 23:40 Oxygen Delivery Room Air 07/12/22 18:54 MDM - Female Genitourinary MDM Narrative Medical decision making narrative: Patient presented to ED with few day history of vaginal spotting, not due for her cycle. Vitals stable upon arrival, mildly hypertensive, patient does have a history of this and is not currently on on any medications. Stabilized throughout ED stay without intervention. Patient's exam unremarkable, no abdominal tenderness. Pelvic exam reassuring, no signs of hemorrhage or other abnormalities. CBC without leukocytosis, stable hemoglobin at 12.7. CMP unremar
[2022-07-13 01:00] VITALS: BP 120/82; PULSE 65; RESP 16; O2SAT 100
== END 2022-07-13 01:05 | disposition home or self-care (01) ==
PROVIDERS: Emergency Medicine; Emergency Provider Physician Assistant
DX: N93.8 Other specified abnormal uterine and vaginal bleeding (principal)
CPT/HCPCS: 36415; 80053; 81001; 81025; 85025; 99284

== ENCOUNTER 2022-08-07 19:40 | Observation (INO) | payer BC, MEDICAID, SELFPAY ==
--- NOTE | ~2022-08-07 | US_ITS ---
EXAMINATION: US OB <=14 wk fetus w TV DATE: 08/07/2022 22:07 INDICATION: Vaginal bleeding during first trimester TECHNIQUE: Real-time pelvic transabdominal and transvaginal ultrasound was performed. COMPARISON: None. FINDINGS: The uterus measures 8.5 x 4.3 x 5.3 cm. No intrauterine gestational sac is identified. The endometrial complex measures 4 mm. The right ovary measures 2.9 x 2.3 x 1.8 cm. The left ovary measur es 4.2 x 2.5 x 2.5 cm. There is a cystic lesion with thin internal septation in the left ovary. No de finite internal components are identified. There is normal vascular flow in the ovaries. There is a large volume of complex free fluid in the pelvis. IMPRESSION: 1. of unknown location. Large volume of complex free fluid in the pelvis is of unclear etio logy but could suggest hemorrhagic component. Although no definite components are identified, O B/BONE PULLER evaluation is recommended given the patient's beta hCG and the possibility of ruptured ectopic . These findings and recommendations were discussed with Renetta Singh PA-C in the Emergency Department at 2037 hours on 08/07/2022. Reviewed, dictated and finalized at location F. IMPRESSION: 1. of unknown location. Large volume of complex free fluid in the pel vis is of unclear etiology but could suggest hemorrhagic component. Although no definite components are identified, WELLNESS GUIDE evaluation is recommended giv en the patient's beta hCG and the possibility of ruptured ectopic . Th lexx findings and recommendations were discussed with HAWA Anderson in the Emergency Department at 2037 hours on 08/07/2022.
[2022-08-07 19:42] VITALS: BP 138/86; PULSE 110; RESP 20; TEMP 36.9; O2SAT 100
--- NOTE | 2022-08-07 19:54 | ED.FEMALEGU ---
HPI - Female Genitourinary General Chief complaint: Vaginal Bleeding <NJ Anderson Last Filed: 08/08/22 01:46> Stated complaint: dizzy, , bleeding <NJ Anderson Last Filed: 08/08/22 01:46> Time Seen by Provider: 08/07/22 19:46 <NJ Anderson Last Filed: 08/08/22 01:46> History of Present Illness HPI Narrative: 27-year-old female here because of abdominal cramping and vaginal bleeding today. Patient states that she found out she was yesterday with a home test. Her last menstrual cycle was at the end of June. Today she noticed some dark blood on the toilet tissue when she wiped and then had some lower abdominal cramping. Has not gone through a menstrual pad. She has not taken any medicine for pain. She plans to follow-up with Dr. Nicole and her first OB appointment is August 17. Has not yet had US. Denies any complications with previous pregnancies besides requiring RhoGAM as her blood type is O-. She denies any nausea, vomiting, dysuria, urgency or frequency, fevers or chills. <NJ Anderson Last Filed: 08/08/22 01:46> Related Data Allergies/Adverse reactions: Allergies Allergy/AdvReac Type Severity Reaction Status Date / Time No Known Allergies Allergy Verified 08/07/22 19:41 <NJ Anderson Last Filed: 08/08/22 01:46> Review of Systems Review of Systems: Gen: Denies fevers or chills Eyes: Denies eye pain or visual change ENT: Denies congestion Respiratory: Denies shortness of breath or cough CV: Denies chest pain or palpitations GI: Reports abdominal pain reports vaginal bleeding. Denies burning, urgency, frequency or hematuria Musculoskeletal: Denies back pain or muscle pain Neuro: Denies numbness, tingling, weakness or focal weakness Skin: Denies rash Except as documented, all other systems reviewed and negative <NJ Anderson Last Filed: 08/08/22 01:46> ON LICENSE OF [facility] Past Medical History Medical History: Medical History No significant past medical history <Renetta Singh PA-C - Last Filed: 08/08/22 01:46> Surgical History Surgical History: Surgical History No history of previous surgery <Renetta Singh PA-C - Last Filed: 08/08/22 01:46> Family History Family History: Family History Mother Hypertension <Renetta Singh PA-C - Last Filed: 08/08/22 01:46> Social History Social History: Social History Smoking status: Never smoker Substance use: never Spiritual care concerns: No <Renetta Singh PA-C - Last Filed: 08/08/22 01:46> Exam Narrative: APPEARANCE: Well appearing, no pain in distress, well-nourished. Head: Normocephalic and atraumatic. EYES: PERRLA/EOMI, conjunctivae clear NOSE: No nasal drainage EARS: External ear normal in appearance THROAT: Oropharynx is clear. Mucous membranes are moist. NECK: Supple. No adenopathy, no masses. RESPIRATORY: Airway patent, respirations nonlabored. Clear to auscultation bilaterally, no rales, rhonchi, wheezing. CARDIOVASCULAR: Regular rate and rhythm without murmurs, rubs, or gallops. ABDOMINAL: Normoactive bowel sounds. Soft, nontender, nondistended. No rebound tenderness or guarding. MUSCULOSKELETAL: Extremities are warm and well-perfused. Moves all extremities well. No edema. NEURO: Normal speech. No focal neurologic deficits. SKIN: Skin is warm and dry. No rashes. PSYCHIATRIC: Normal affect/mood.. <Renetta Singh PA-C - Last Filed: 08/08/22 01:46> Course REIMBURSEMENT CONSULTANT/PA Physician Supervision For this patient encounter, I reviewed the REIMBURSEMENT CONSULTANT or PA documentation, treatment plan, and medical decision making; and
[2022-08-07 20:22] LABS: Basophils Percent Auto 0.4 % (0.2-1.2); Eosinophils Percent Auto 0.4 % (0-4.4); Hematocrit 25.5 % (37.0-47.0); Hemoglobin 8.5 g/dL (12.0-15.0); Immature Granulocyte Absolute 0.02 K/mm3 (0.00-0.031); Immature Granulocyte Percent A 0.4 % (0-0.5); Lymphocytes Absolute Auto 1.01 K/mm3 (0.9-3.2); Lymphocytes Percent Auto 18.1 % (18.3-44.2); Mean Corpuscular HGB Conc 33.3 g/dl (32-36); Mean Corpuscular Hemoglobin 30.7 pg (26-34); Mean Corpuscular Volume 92.1 fl (80-100); Mean Platelet Volume 9.4 fl (7.4-10.4); Monocytes Absolute Auto 0.5 K/mm3 (0.1-0.6); Monocytes Percent Auto 9.5 % (2.6-8.5); Neutrophils Percent Auto 71.2 % (45.5-73.1); Platelet Count Result 217 k/mm3 (150-375); Red Blood Count 2.77 M/mm3 (4.2-5.4); Red Cell Distribution Width 12.4 % (11.5-14.5); White Blood Count 5.6 K/mm3 (4.5-10.0)
[2022-08-07] MEDS: LACTATED RINGERS 1,000 ML 999 ML IV CONT ×2 (20:29→22:43)
[2022-08-07 20:32] LABS: Alanine Aminotransferase 11 U/L (6-35); Albumin Level 4.5 g/dL (3.5-5.1); Alkaline Phosphatase 72 U/L (38-126); Anion Gap 7 mmol/L (8-16); Aspartate Amino Transferase 24 U/L (14-36); Bilirubin,Total 0.6 mg/dL (0.2-1.3); Blood Urea Nitrogen 11 mg/dL (7-17); Calcium 8.8 mg/dL (8.4-10.2); Carbon Dioxide 25 mmol/L (22-30); Chloride 104 mmol/L (98-107); Estimated CRCL calculation 73 ml/min; Estimated Glomerular Filt Rate > 60; Glucose 96 mg/dL (65-110); Potassium 3.5 mmol/L (3.4-5.0); Sodium 136 mmol/L (137-145)
[2022-08-07 20:47] LABS: Appearance Urine Clear (Clear); Bacteria Urine None Seen /hpf; Bilirubin Urine Negative (Negative); Blood Urine 2+ (Negative); Color Urine Dark Yellow (Yellow); Glucose Urine UA Negative (Negative); Ketones Urine 4+ mg/dL (Negative); Leukocyte Esterase Ur Trace LEU/UL (Negative); Mucus Urine Present /lpf; Nitrate Urine Negative (Negative); Protein Urine 1+ mg/dL (Negative); Specific Grav Ur 1.031 (1.001-1.035); Squamous Epithelial Cell Urine Few /hpf (Few); WBC Urine 0-5 /hpf; pH Urine 5.5 (5.0-9.0)
[2022-08-07 20:58] LABS: Add Urine Microscopic? YES
[2022-08-07 23:45] VITALS: BP 123/84; PULSE 85; RESP 20; O2SAT 100
[2022-08-07 23:59] VITALS: BP 123/84; PULSE 74; RESP 20; O2SAT 100
[2022-08-08] VITALS (65 sets, daily range): BP systolic 113–139; BP diastolic 60–94; PULSE 55–90; RESP 13–22; TEMP 36.3–37.7; O2SAT 96–100
[2022-08-08] MEDS: LACTATED RINGERS 1,000 ML 125 ML IV CONT ×2 (01:22→12:55)
[2022-08-08] MEDS: RHO(D) IMMUNE GLOBULIN 300 MCG/2 ML SYRINGE IM (01:43)
--- NOTE | 2022-08-08 02:37 | OBADM ---
This patient, Janneth Bravo, admitted to the OB room OB Post 113 for observation. Patient/family oriented to hospital policies and general routines including ID bracelet, bed and alarms, visiting hours, pain management, procedures, bathroom and other care routines, personal items, smoking policy, room service/diet, and visiting hours. Patient/Family are encouraged to report perceived risks to care and to ask questions if they do not understand what they are told or what they should do.
[2022-08-08 05:11] LABS: Hematocrit 21.4 % (37.0-47.0)
[2022-08-08 05:21] LABS: Hemoglobin 6.9 g/dL (12.0-15.0)
--- NOTE | 2022-08-08 06:46 | PC.NURSE ---
0600: Per darryl rodriguez RN, critical result was reported to Dr. Nicole who stated he will be in this morning to evaluate patient.
--- NOTE | 2022-08-08 08:42 | PC.NURSE ---
0840: OB at bedside to discuss surgery with patient.
--- NOTE | 2022-08-08 09:37 | PM.IMHP ---
H&P: HPI History of Present Illness Date/Time: 08/08/22 09:37 Chief Complaint: Abdominal pain Narrative: this patient is a 27-year-old female who presented the emergency depart with pelvic and abdominal pain. She has a hemoperitoneum and a positive test. She likely has a ruptured ectopic. We talked about the diagnoses and the findings with the patient. We talked about treatment. We agreed to proceed with surgical treatment. She understands that injuries may occur to the surgical result in hospitalization, more surgery, severe illness. She understands risk of hemorrhage and infection. She is subject to hemorrhage with this possible hemorrhagic friable structure within the pelvis. We needs to be removed. Review of Systems Review of Systems: All systems reviewed & are unremarkable except as noted in HPI and below Constitutional: Constitutional: Denies chills, Denies fatigue, Denies fever(s) and Denies weakness Eyes: Eyes: Denies blurry vision, Denies change in vision, Denies loss of peripheral vision, Denies loss of vision, Denies other visual disturbances and Denies eye pain ENT: Denies vertigo, Denies dizziness, Denies hearing loss, Denies mouth pain, Denies nasal obstruction, Denies neck mass and Denies neck pain Cardiovascular: Cardiovascular: Denies chest pain, Denies diaphoresis, Denies syncope, Denies leg edema and Denies dyspnea Respiratory: Respiratory: Denies chest congestion, Denies cough, Denies hemoptysis, Denies dyspnea and Denies wheezing Gastrointestinal: Gastrointestinal: Denies abdominal pain, Denies constipation, Denies diarrhea, Denies nausea and Denies vomiting Genitourinary: Genitourinary: Denies hematuria, Denies change in libido, Denies nocturia, Denies genital lesions, Denies flank pain and Denies urinary urgency Musculoskeletal: Musculoskeletal: Denies abnormal gait, Denies back pain, Denies myalgias, Denies arthralgias, Denies joint swelling, Denies muscle weakness and Denies neck pain Integumentary/Breasts: Skin/Breast: Denies swelling, Denies breast pain, Denies breast mass, Denies dry skin, Denies nipple discharge, Denies unusual bruising and Denies jaundice Neurologic: Denies Neuro-related abnormal movements, Denies Abnormal speech present, Denies abnormal gait, Denies behavioral changes, Denies confusion, Denies vertigo, Denies dizziness, Denies syncope, Denies loss of vision, Denies memory loss, Denies convulsions and Denies weakness Psychiatric: Psychiatric: Denies abnormal sleep pattern, Denies behavioral changes, Denies change in libido, Denies confusion, Denies depression, Denies anhedonia and Denies memory loss Endocrine: Endocrine: Reports no additional endocrine complaints, Denies change in libido and Denies fatigue Hematologic/Lymphatic: Hematologic/Lymphatic: Reports no additional hematologic/lymphatic complaints Allergic/Immunologic: Allergic/Immunologic: Reports no additional allergic/immunologic complaints and Denies wheezing PMFSH Past Medical History Medical History No significant past medical history Surgical History Surgical History No history of previous surgery Family History Family History Mother Hypertension Social History Social History Smoking status: Never smoker Substance use: never Spiritual care concerns: No Meds Home Medications and Allergies Home Medications Medication Instructions Recorded Confirmed Type labetalol 200 mg tablet 200 mg PO Q12H elevated blood 01/13/20 Rx pressure #30 tabs amoxicillin 875 mg tablet 875 mg PO Q12H #20 tabs 05/14/22 Rx oseltamivir 75 mg capsule (Tamiflu) 75 mg PO Q12H 5 days #10 caps 05/14/22 Rx Allergies Allergy/AdvReac Type Severity Reaction Sta
--- NOTE | 2022-08-08 10:45 | PC.NURSE ---
1031: pre-op RN at bedside, report given, pt taken via bed to PACU with one unit of blood transfusing.
[2022-08-08] MEDS: SODIUM CHLORIDE 0.9% IV 250 ML 30 ML IV CONT (10:49)
--- NOTE | 2022-08-08 10:51 | WPDANESEPPF ---
Anes - Initial Pre Proc Eval Procedure: Operation Date: 08/08/22 11:00 Proposed Procedures p Diagnostic Laparoscopy - Phoenix Nicole MD Date/Time: 08/08/22 10:51 Surgeon: Phoenix Nicole MD Pre Op Diagnosis: ectopic Patient Data Age: 27 Gender: F Height: 1.52 m Weight: 54.5 kg Last Vital Signs Temp 36.6 C 08/08/22 10:40 Pulse 90 08/08/22 10:40 Resp 20 08/08/22 10:40 BP 135/94 H 08/08/22 10:40 Pulse Ox 100 08/08/22 10:40 O2 Del Method Room Air 08/08/22 10:40 Allergies Allergy/AdvReac Type Severity Reaction Status Date / Time No Known Allergies Allergy Verified 08/07/22 19:41 Home Medications Medication Instructions Recorded Confirmed Type labetalol 200 mg tablet 200 mg PO Q12H elevated blood 01/13/20 Rx pressure #30 tabs amoxicillin 875 mg tablet 875 mg PO Q12H #20 tabs 05/14/22 Rx oseltamivir 75 mg capsule (Tamiflu) 75 mg PO Q12H 5 days #10 caps 05/14/22 Rx Laboratory Tests 08/07/22 08/07/22 08/07/22 20:14 20:14 20:14 WBC 5.6 K/mm3 K/mm3 (4.5-10.0) RBC 2.77 M/mm3 L M/mm3 (4.2-5.4) Hgb 8.5 g/dL L D g/dL (12.0-15.0) Hct 25.5 % L % (37.0-47.0) MCV 92.1 fl fl (80-100) MCH 30.7 pg pg (26-34) MCHC 33.3 g/dl g/dl (32-36) RDW 12.4 % % (11.5-14.5) Plt Count 217 k/mm3 k/mm3 (150-375) MPV 9.4 fl fl (7.4-10.4) Immature Gran % (Auto) 0.4 % % (0-0.5) Neut % (Auto) 71.2 % % (45.5-73.1) Lymph % (Auto) 18.1 % L % (18.3-44.2) [place] % (Auto) 9.5 % H % (2.6-8.5) Eos % (Auto) 0.4 % % (0-4.4) Baso % (Auto) 0.4 % % (0.2-1.2) Lymph # (Auto) 1.01 K/mm3 K/mm3 (0.9-3.2) [place] # (Auto) 0.5 K/mm3 K/mm3 (0.1-0.6) Eos # (Auto) 0.0 K/mm3 K/mm3 (0-0.3) Baso # (Auto) 0.0 K/mm3 K/mm3 (0.0-0.1) Abs Immat Gran (auto) 0.02 K/mm3 K/mm3 (0.00-0.031) Absolute Neuts (auto) 4.0 K/mm3 K/mm3 (1.3-6.7) Absolute Nucleated RBC 0.0 K/mm3 K/mm3 (0.0-0.012) Nucleated RBC % 0.0 % % (0.0-0.2) Sodium 136 mmol/L L mmol/L (137-145) Potassium 3.5 mmol/L mmol/L (3.4-5.0) Chloride 104 mmol/L mmol/L (98-107) Carbon Dioxide 25 mmol/L mmol/L (22-30) Anion Gap 7 mmol/L L mmol/L (8-16) BUN 11 mg/dL mg/dL (7-17) Creatinine 0.70 mg/dL mg/dL (0.7-1.0) Estim Creat Clear Calc 73 ml/min ml/min Estimated GFR > 60 (59 - ) Glucose 96 mg/dL mg/dL (65-110) Calcium 8.8 mg/dL mg/dL (8.4-10.2) Total Bilirubin 0.6 mg/dL mg/dL (0.2-1.3) AST 24 U/L U/L (14-36) ALT 11 U/L U/L (6-35) Alkaline Phosphatase 72 U/L U/L (38-126) Total Protein 8.0 g/dL g/dL (6.3-8.2) Albumin 4.5 g/dL g/dL (3.5-5.1) Beta HCG, Quant 83959.00 mIU/ML mIU/ML Urine Color Dark yellow (Yellow) Urine Appearance Clear (Clear) Urine pH 5.5 (5.0-9.0) Ur Specific [place] 1.031 (1.001-1.035) Urine Protein 1+ mg/dL H mg/dL (Negative) Urine Glucose (UA) Negative mg/dL mg/dL (Negative) Urine Ketones 4+ mg/dL H mg/dL (Negative) Ur Blood (Man) 2+ H (Negative) Urine Nitrate Negative (Negative) Urine Bilirubin Negative (Negative) Urine Urobilinogen 1.0 mg/dL mg/dL (<2.0) Leukocyte Esterase Rfl Trace FARHAD/UL H FARHAD/UL (Negative) Urine RBC 3-5 /hpf H /hpf (0-2) Urine WBC 0-5 /hpf /hpf Ur Squamous Epith Cells Few /hpf /hpf (Few) Urine Bacteria None seen /hpf /hpf Urine Casts 6-10 Urine Mucus Present /lpf /lpf Blood Type Antibody Screen Screen
[2022-08-08] MEDS: LACTATED RINGERS 1,000 ML 30 ML IV CONT (11:32)
--- NOTE | 2022-08-08 12:44 | SUR.OPER ---
EBL 340ML TOTAL U/A
--- NOTE | 2022-08-08 13:29 | W.PM.PROC2 ---
Procedure Note - Detailed Date of Procedure 08/08/22 Pre-op Diagnosis hemoperitoneum, abdominal pain, of unknown location Post-op Diagnosis Other ( ectopic with hemoperitoneum) Procedure Performed Diagnostic laparoscopy Surgeon Phoenix Nicole MD Anesthesia General Indications Pelvic pain, hemoperitoneum, of unknown location Findings hemoperitoneum, ruptured left fallopian tube with ectopic . Description of Procedure The patient was taken to the operating room. She was prepped and draped in the dorsal lithotomy position after induction general anesthesia. A 5 mm incision was made with a scalpel on the abdominal skin in the left upper quadrant of the abdomen. A 5 mm trocar was inserted into the intra-abdominal cavity under direct visualization the scope. In the same fashion a 5 mm left lower quadrant trocar was inserted and a 5 mm infraumbilical trocar was inserted. Hemoperitoneum was reduced with suction cannula. Left salpingectomy was performed. Using the LigaSure the left fallopian tube was removed by IA cauterized in the mesosalpinx adjacent to the fallopian tube from the ovary around to the cornua of the uterus. The tube was transected at the cornua of the uterus and cauterized there. The fallopian tube with the ruptured ectopic was taken out the left lower quadrant trocar site. The pelvis was irrigated. The pneumoperitoneum was reduced. The trocars were removed. Skin was closed with subcuticular 4 micro. The patient's incisions were covered with Dermabond. She was taken recovery room in stable condition. Sponge lap and needle counts were correct x2. Estimated Blood Loss -340.0 Urine Output -150.0 Complications No immediate complications Condition Stable Disposition Same day
[2022-08-08] MEDS: fentaNYL CITRATE INJ (*CRX) 100 MCG/2 ML VIAL 25 MCG IV PUSH ×3 (13:39→14:02)
[2022-08-08] MEDS: TUBING, BLOOD PLUM PUMP TUBING 1 EACH XX (15:44)
[2022-08-08] MEDS: HYDROcodone/acetaminophen (*CRX) 5-325 MG TABLET 2 TAB PO (16:40)
--- NOTE | 2022-08-08 17:07 | PC.NURSE ---
1707: Dr. Nicole was called via cell phone. Orders for discharge with pelvic rest, regular diet, pain management education, and orders for pt to make an appointment with him this week.
--- NOTE | 2022-09-06 18:16 | PM.DS ---
DS: Admitting Diagnosis Discharge Date 08/08/22 Admitting Diagnosis ectopic DS: Summary Hospital Course Hospital Course: this patient is a 27-year-old female who presented with pain and positive test. She is found have an ectopic . Surgeries performed to treat the ectopic . She tolerated that well. She recovered well. She was sent home shortly after the surgery Time Spent with Patient Time attestation: Total time spent providing and/or coordinating discharge services: DS: Data Data Completed and Pending Completed studies during hospitalization: Pending at discharge 08/08/22 12:42 Surgical [PTH] Routine Discharge Plan Discharge Consulting providers: Renetta Singh; Ronaldo Sinha; Real Enrique Discharging Clinician: Phoenix Nicole Patient Disposition: Home, Self-Care Activity: pelvic rest Diet: as tolerated and regular Discharge Instructions: OB ANTEPARTUM DISCHARGE INSTRUCTIONS This information is given to help you properly care for yourself at home after your discharge from the hospital. Follow these instructions until your doctor tells you otherwise. DIET: Additional Diet Instructions: as tolerated, regular diet ACTIVITY: pelvic rest FOLLOW-UP CARE: Follow up with Dr. Nicole this coming week. Call Dr. Nicole's office to make an appointment IF YOU HAVE ANY QUESTIONS REGARDING THESE INSTRUCTIONS, PLEASE CALL [phone]. IF PROBLEMS ARISE, CALL YOUR PROVIDER. IF EMERGENCY CARE IS NEEDED, [facility] EMERG[facility] ROOM IS AVAILABLE 24 HOURS A DAY. Stand Alone Forms: General Discharge Information, Work/School Release IP Follow-up/Referrals: Phoenix Nicole MD [Physician] - Discharge Medications: New hydrocodone-acetaminophen 5-325 mg tablet 1 tablet PO Q4H PRN (Reason: pain) Qty: 25 0RF Continued labetalol 200 mg Tablet 200 mg PO Q12H Qty: 30 0RF Rx Instructions: take 200mg twice daily amoxicillin 875 mg tablet 875 mg PO Q12H Qty: 20 0RF oseltamivir [Tamiflu] 75 mg capsule 75 mg PO Q12H 5 Days Qty: 10 0RF Date of admission: 08/07/22 22:58 Primary Care Provider: PHYSICIAN,GLAZIER ARTIST Admitting Provider: Phoenix Nicole Attending physician on admission: Phoenix Nicole Condition: Stable
--- NOTE | 2022-09-28 12:25 | P.PNOB_ITS ---
OB - Triage/Final Diagnosis Visit Information Comments/Additional reasons for admission: I have assessed the risk for this patient, Janneth Bravo, and determined that she would benefit from observation care. Evaluation Laboratory results: Laboratory Tests 08/07/22 08/08/22 20:14 04:53 WBC 5.6 RBC 2.77 L Hgb 8.5 L D 6.9 L* Hct 25.5 L 21.4 L MCV 92.1 MCH 30.7 MCHC 33.3 RDW 12.4 Plt Count 217 MPV 9.4 Immature Gran % (Auto) 0.4 Neut % (Auto) 71.2 Lymph % (Auto) 18.1 L [place] % (Auto) 9.5 H Eos % (Auto) 0.4 Baso % (Auto) 0.4 Lymph # (Auto) 1.01 [place] # (Auto) 0.5 Eos # (Auto) 0.0 Baso # (Auto) 0.0 Abs Immat Gran (auto) 0.02 Absolute Neuts (auto) 4.0 Absolute Nucleated RBC 0.0 Nucleated RBC % 0.0 Sodium 136 L Potassium 3.5 Chloride 104 Carbon Dioxide 25 Anion Gap 7 L BUN 11 Creatinine 0.70 Estim Creat Clear Calc 73 Estimated GFR > 60 Glucose 96 Calcium 8.8 Total Bilirubin 0.6 AST 24 ALT 11 Alkaline Phosphatase 72 Total Protein 8.0 Albumin 4.5 Beta HCG, Quant 29709.00 Urine Color Dark yellow Urine Appearance Clear Urine pH 5.5 Ur Specific [place] 1.031 Urine Protein 1+ H Urine Glucose (UA) Negative Urine Ketones 4+ H Ur Blood (Man) 2+ H Urine Nitrate Negative Urine Bilirubin Negative Urine Urobilinogen 1.0 Leukocyte Esterase Rfl Trace H Urine RBC 3-5 H Urine WBC 0-5 Ur Squamous Epith Cells Few Urine Bacteria None seen Urine Casts 6-10 Urine Mucus Present Blood Type O Negative Antibody Screen Negative Screen TNP Baby's Blood Type TNP Baby's KATRINA TNP Doses of RhIg Required 1 Crossmatch See Detail Final Diagnosis (1) Ectopic without intrauterine : Code(s): O00.90 - Unspecified ectopic without intrauterine Status: Acute
== END 2022-08-08 19:58 | disposition home or self-care (01) ==
LOC: ANHED 20:04 → ANHOBPP 23:40
PROVIDERS: Admitting Provider Obstetrics & Gynecology; Emergency Provider Physician Assistant; Visit Provider Obstetrics & Gynecology
PROC: (CPT 49320; principal; 2022-08-08 11:00)
DX: O00.102 Left tubal pregnancy without intrauterine pregnancy (principal); Z3A.01 Less than 8 weeks gestation of pregnancy
CPT/HCPCS: 59151; 36415; 36430; 76801; 76817; 80053; 81001; 81025; 84702; 85014; 85018; 85025; 85461; 86850; 86900; 86901; 86920; 88305; 90384; 96365; 96366; 99285; A9270; G0378; J0131; J0330; J1100; J2250; J2405; J2704; J2710; J2790; J3010; J7030; J7050; J7120; P9016